=== PATIENT | female | born 1975 | race Caucasian/White ===

== ENCOUNTER → 2020-03-24 | Outpatient (CLI) | payer BC ==
--- NOTE | 2020-03-24 08:54 | XR ---
EXAMINATION TYPE: XR knee complete RT DATE OF EXAM: 03/24/2020 COMPARISON: NONE HISTORY: Pain TECHNIQUE: Three views are submitted. FINDINGS: Mild narrowing of patellofemoral joint and medial compartment knee. There is soft tissue ossification anterior to the tibia. Spur along the upper margin of the patella. No erosive changes. Small amount of fluid in the suprapatellar bursa.. Osseous structures are intact. No acute fracture seen. IMPRESSION: 1. No acute fracture or dislocation. 2. There is arthritic changes compatible with mild osteoarthritis. 3. Small amount of fluid in the suprapatellar bursa can occasionally be associated with internal dera ngement of the knee. Consider MRI as clinically warranted.
== END | disposition home or self-care (01) ==
LOC: RADXRMAIN 07:37
PROVIDERS: ATTEND Family Medicine
DX: M17.11 Unilateral primary osteoarthritis, right knee (principal)

== ENCOUNTER → 2020-04-15 | Outpatient (CLI) | payer BC ==
--- NOTE | 2020-04-17 14:18 | MR ---
EXAMINATION TYPE: MR knee RT wo con DATE OF EXAM: 04/17/2020 COMPARISON: Plain film 03/31/2020 HISTORY: rt knee pain TECHNIQUE: Multiplanar, multisequence imaging of the right knee is performed without IV contrast. FINDINGS: MEDIAL MENISCUS: Anterior and posterior horns are intact without tear. LATERAL MENISCUS: There is some intrasubstance signal at the body, no clear communication with the ar ticular surface CRUCIATE LIGAMENTS: The anterior and posterior cruciate ligaments are intact and unremarkable. COLLATERAL LIGAMENTS: The medial collateral ligament and lateral collateral ligament complex are inta ct and along the medial collateral ligament there is fluid signal present seen on coronal image #23. EXTENSOR MECHANISM: Visualized quadriceps and patellar tendons are intact. EFFUSION: Suprapatellar joint effusion is present. POPLITEAL CYST: Small semimembranosus gastrocnemius cyst is present TRICOMPARTMENT SPACES: Maintained CARTILAGE: There is grade 2 to grade III chondromalacia in the medial compartment and posterior ruff la BONE MARROW SIGNAL: Maintained OTHER: There is subcutaneous edema changes. IMPRESSION: Correlate for medial collateral ligament sprain. Osteoarthritis. Small semimembranosus gastrocnemius cyst. Joint effusion.
== END | disposition home or self-care (01) ==
LOC: RADMRIMAIN 06:27
PROVIDERS: ATTEND Orthopaedic Surgery
DX: M17.11 Unilateral primary osteoarthritis, right knee (principal); M25.811 Other specified joint disorders, right shoulder

== ENCOUNTER → 2020-04-27 | Outpatient (CLI) | payer BC ==
[2020-04-27 12:47] LABS: Basophils # (A) 0.1 k/uL (0-0.2); Basophils % (A) 1 %; Eosinophils # (A) 0.1 k/uL (0-0.7); Eosinophils % (A) 2 %; HCT 40.6 % (34.0-46.0); HGB 13.5 gm/dL (11.4-16.0); Lymphocytes # (A) 1.5 k/uL (1.0-4.8); Lymphocytes % (A) 23 %; MCH 29.7 pg (25.0-35.0); MCHC 33.3 g/dL (31.0-37.0); MCV 89.3 fL (80.0-100.0); Mean Platelet Volume 7.4; Monocytes # (A) 0.4 k/uL (0-1.0); Monocytes % (A) 5 %; Neutrophils # (A) 4.5 k/uL (1.3-7.7); Neutrophils % (A) 67 %; Platelet Count 218 k/uL (150-450); RBC 4.55 m/uL (3.80-5.40); RDW 12.7 % (11.5-15.5); WBC 6.6 k/uL (3.8-10.6)
[2020-04-27 13:11] LABS: Potassium 4.7 mmol/L (3.5-5.1)
== END | disposition home or self-care (01) ==
LOC: LABPAT 11:44
PROVIDERS: ATTEND Orthopaedic Surgery
DX: M23.91 Unspecified internal derangement of right knee (principal)
CPT/HCPCS: 36415; 80051; 85025

== ENCOUNTER 2020-05-13 13:10 | Day surgery (SDC) | payer BC ==
[2020-05-12 09:23] VITALS: BMI 38.7
--- NOTE | 2020-05-12 14:55 | HP ---
HISTORY AND PHYSICAL DATE OF SURGERY: 05/13/2020 Brittany Hutson is a 45-year-old patient seen with progressive right knee pain. We discussed options for treatment. She elected to proceed with arthroscopy. Consent was obtained. PAST MEDICAL HISTORY: Anemia. PAST SURGICAL HISTORY: section, lumbar spine surgery. DAILY MEDICATIONS: Ibuprofen. ALLERGIES: COMPAZINE, LEVAQUIN. SOCIAL HISTORY: She denies tobacco use. PHYSICAL EVALUATION OF THE RIGHT KNEE: Range of motion is -15 to 85. Mild effusion. Tenderness medial joint line. Positive medial Ender's. Ligaments stable. Hip rotation without pain. Distal neurovascular exam intact. Radiographs of the right knee revealed mild osteoarthritic changes. MRI right knee revealed abnormal signal lateral meniscus, grade 2 chondromalacia, joint effusion. IMPRESSION: 1. Internal derangement, right knee with meniscal tear versus osteochondral tear. 2. Hypertension. PLAN: Right knee arthroscopy with partial meniscectomy versus chondroplasty and debridement. MMODL / IJN: [id number] /
[~2020-05-13 13:10] MED LIST: DEXAMETHASONE SOD PHOSPHATE 4 MG/ML 1 ML VIAL IV ONE; LACTATED RINGERS 1,000 ML IV SCH; LIDOCAINE 1% (10MG/ML) FOR IV START INTRADERMA PRN; ONDANSETRON 4 MG/2 ML VIAL IVP ONE; SCOPOLAMINE 1.5MG/72HR PATCH TRANSDERM ONE; ceFAZolin 3 GM in SODIUM CHLORIDE 0.9% 100 ML IVPB PRN
[2020-05-13] MEDS ORDERED: MIDAZOLAM 2 MG/2 ML VIAL IV ONE (14:11)
[2020-05-13] MEDS ORDERED: PROPOFOL 10 MG/ML 20 ML VIAL IV ONE (14:50)
[2020-05-13] MEDS ORDERED: fentaNYL (PF) 50 MCG/ML 2 ML AMP ONE (14:50)
[2020-05-13] MEDS ORDERED: LIDOCAINE 1% INJ 10MG/ML (20 ML MDV) ONE (14:50)
[2020-05-13] MEDS ORDERED: KETAMINE 10 MG/ML 20 ML VIAL ONE (14:50)
[2020-05-13] MEDS ORDERED: BUPIVACAINE (PF) 0.25% 30 ML VIAL INTRAARTIC ONE ×2 (15:17→15:26)
--- NOTE | 2020-05-13 15:45 | P.OP ---
Date of Procedure: 05/13/20 Preoperative Diagnosis: Internal derangement right knee Postoperative Diagnosis: 1. Tear medial meniscus right knee 2. Grade 3 chondromalacia patella right knee 3. Grade 2 chondromalacia medial femoral condyle right knee 4. Reactive synovitis medial, lateral and suprapatellar compartments right knee Procedure(s) Performed: 1. Arthroscopic partial medial meniscectomy right knee 2. Arthroscopic chondroplasty patella right knee 3. Arthroscopic chondroplasty medial femoral condyle right knee 4. Arthroscopic partial synovectomy medial, lateral and suprapatellar compartments right knee Anesthesia: SABRINAA, local Surgeon: Gilberto Stahl Estimated Blood Loss (ml): 7 Pathology: none sent Condition: stable Disposition: PACU Indications for Procedure: 45-year-old patient seen with progressive right knee pain. After treatment options were discussed, she elected to proceed with arthroscopy. Operative Findings: see description of procedure Description of Procedure: Patient was taken to the operative suite. Patient underwent a general anesthetic by the department of anesthesia. Patient was given preoperative antibiotics. The right lower extremity was placed in a well-padded arthroscopic leg rowell. The right leg was prepped and draped in the normal sterile orthopedic fashion. A lateral parapatellar and suprapatellar incision was made. Trochars were inserted. Arthroscopy was initiated. Suprapatellar pouch revealed diffuse thick reactive synovitis. The patellofemoral joint appeared to articulate congruently. There was grade 3 chondral malacia of the patella with some diffuse osteochondral tears present.. The scope was guided into the medial gutter. No loose bodies or plica were identified. The scope was then guided into the medial compartment. A medial parapatellar incision was made. Trocar inserted followed by probe. There was a radial tear posterior horn medial meniscus. There were grade 2 chondromalacia along the medial femoral condyle with some small osteochondral flap tears present. There was thick reactive synovitis anteriorly. I performed a partial medial meniscectomy getting down to stable meniscal tissue. I performed a chondroplasty of the medial femoral condyle getting down to stable osteochondral tissue. I performed a partial synovectomy decompressing the reactive synovitis. The residual meniscus was stable. There was good decompression of the synovitis. Scope and probe were then guided into the intercondylar notch. Cruciates were identified, probed and found to be stable. The scope and probe were then guided into lateral compartment. There was some mild fraying of the midbody lateral meniscus. There was no significant chondromalacia present there was thick reactive synovitis anteriorly. I introduced a motorized shaver and debrided the superfic ial fraying of the meniscus. I performed a partial synovectomy decompressing the reactive synovitis. The shaver was removed. There was good decompression of synovitis. The scope was in guided back into the suprapatellar compartment. I introduced a motorized shaver into the super patellar compartment. I debrided some piecemeal fragments of meniscus I encountered. I performed a chondroplasty of the patella getting down to stable osteochondral tissue. I performed a partial synovectomy decompressing reactive synovitis. Shaver was removed. The residual osteochondral surface of the patella was stable again noted grade 3 chondromalacia there. There was good decompression of synovitis. Instruments were now removed from the joint. The joint was infiltrated with .25% Marcaine. Steri-Strips were applied to the portal sites. Sterile dressings were applied. The patient was placed into a RADHA hose. No tourniquet was utilized. The patient was awakened, transferred to a bed and taken to recovery stable satisfactory condition.
[2020-05-13 15:46] VITALS: TEMP 97.8
[2020-05-13] MEDS: HYDROmorphone 0.5 MG/0.5 ML SYRINGE IVP PRN ×2 (15:47→16:05)
[2020-05-13] MEDS ORDERED: LACTATED RINGERS 1,000 ML IV ONE (16:01)
[2020-05-13 16:32] VITALS: RESP 16
[2020-05-13] MEDS ORDERED: HYDROcodone/APAP 7.5-325MG 1 EACH TAB ONE (16:51)
[2020-05-13] MEDS ORDERED: HYDROcodone/APAP 7.5-325MG 1 EACH TAB PO ONE (16:52)
[2020-05-13 16:56] VITALS: PULSE 70
[2020-05-13 17:35] VITALS: BP 139/89
== END 2020-05-13 17:46 | disposition home or self-care (01) ==
LOC: OR 13:10
PROVIDERS: ATTEND Orthopaedic Surgery
DX: M23.221 Derangement of posterior horn of medial meniscus due to old tear or injury, right knee (principal); M22.41 Chondromalacia patellae, right knee; M65.861 Other synovitis and tenosynovitis, right lower leg; I10 Essential (primary) hypertension; D64.9 Anemia, unspecified; E66.01 Morbid (severe) obesity due to excess calories; G47.33 Obstructive sleep apnea (adult) (pediatric); Z88.1 Allergy status to other antibiotic agents; Z88.8 Allergy status to other drugs, medicaments and biological substances; Z98.891 History of uterine scar from previous surgery; Z98.890 Other specified postprocedural states; Z68.38 Body mass index [BMI] 38.0-38.9, adult
CPT/HCPCS: 29881; 81025; J2250; J1100; J0690; J2405; J2001; J3010; J2704; J1170

== ENCOUNTER → 2020-07-16 | Outpatient (CLI) | payer BC ==
--- NOTE | 2020-07-19 10:19 | MM ---
Reason for exam: screening (asymptomatic). Last mammogram was performed 1 year and 3 months ago. History: Patient history of other cancer and had first child at age 33. Family history of breast cancer in sister at age 44. Took hormonal contraceptives for 15 years beginning at age 16. Physical Findings: A clinical breast exam by your physician is recommended on an annual basis and results should be correlated with mammographic findings. MG 3D Screening Mammo W/Cad Bilateral CC and MLO view(s) were taken. Prior study comparison: April 21, 2019, mammogram. April 17, 2018, mammogram. The breast tissue is heterogeneously dense. This may lower the sensitivity of mammography. Stable benign calcifications. There is no discrete abnormality. No significant changes when compared with prior studies. ASSESSMENT: Benign, BI-RAD 2 RECOMMENDATION: Routine screening mammogram of both breasts in 1 year.
== END | disposition home or self-care (01) ==
LOC: RADMAMWWP 07:03
PROVIDERS: ATTEND Obstetrics & Gynecology
DX: Z12.31 Encounter for screening mammogram for malignant neoplasm of breast (principal); Z80.3 Family history of malignant neoplasm of breast
CPT/HCPCS: 77063; 77067

== ENCOUNTER → 2021-08-18 | Outpatient (CLI) | payer BC ==
--- NOTE | 2021-08-22 08:26 | MM ---
Reason for exam: screening (asymptomatic). Last mammogram was performed 1 year and 1 month ago. History: Patient history of other cancer and had first child at age 33. Family history of breast cancer in sister at age 44. Took hormonal contraceptives for 15 years beginning at age 16. Physical Findings: A clinical breast exam by your physician is recommended on an annual basis and results should be correlated with mammographic findings. MG 3D Screening Mammo W/Cad Bilateral CC and MLO view(s) were taken. Prior study comparison: July 16, 2020, bilateral MG 3d screening mammo w/cad. April 21, 2019, mammogram. There are scattered fibroglandular densities. No significant changes when compared with prior studies. ASSESSMENT: Benign, BI-RAD 2 RECOMMENDATION: Routine screening mammogram of both breasts in 1 year.
== END | disposition home or self-care (01) ==
LOC: RADMAMWWP 10:16
PROVIDERS: ATTEND Obstetrics & Gynecology
DX: Z12.31 Encounter for screening mammogram for malignant neoplasm of breast (principal); Z80.3 Family history of malignant neoplasm of breast
CPT/HCPCS: 77063; 77067

== ENCOUNTER → 2022-08-21 | Outpatient (CLI) | payer BC ==
--- NOTE | 2022-08-22 09:19 | MM ---
Reason for Exam: Screening (asymptomatic). Last mammogram was performed 1 year(s) and 1 month(s) ago. Patient History: Menarche at age 12. First Full-Term at age 33. Late child-bearing (after 30). Other cancer. Hormonal Contraceptives for 15 years from age 16 until age 31. Sister had breast cancer, age 44. Last menstrual period: 06/25/2022 Risk Values: Taisha 5 year model risk: 1.8%. NCI Lifetime model risk: 17.8%. Prior Study Comparison: 04/21/2019 Screening Mammogram, Unknown. 07/16/2020 Bilateral Screening Mammogram, [facility]. 08/18/2021 Bilateral Screening Mammogram, [facility]. Tissue Density: There are scattered fibroglandular densities. Findings: Analyzed By CAD. There is no suspicious group of microcalcifications or new suspicious mass in either breast. Overall Assessment: Negative, BI-RAD 1 Management: Screening Mammogram of both breasts in 1 year. . Patient should continue monthly self-breast exams. A clinical breast exam by your physician is recommended on an annual basis. This exam should not preclude additional follow-up of suspicious palpable abnormalities. Note on Taisha scores and lifetime risk: 1. A Taisha score greater than 3% is considered moderate risk. If this is the case, consider specialist referral to assess eligibility for a risk reducing agent. 2. If overall lifetime risk for the development of breast cancer is 20% or higher, the patient may qualify for future screening with alternating mammogram and breast MRI. Electronically signed and approved by: Tyrese Hooper DO
== END | disposition home or self-care (01) ==
LOC: RADMAMWWP 07:46
PROVIDERS: ATTEND Obstetrics & Gynecology
DX: Z12.31 Encounter for screening mammogram for malignant neoplasm of breast (principal); Z80.3 Family history of malignant neoplasm of breast
CPT/HCPCS: 77063; 77067

== ENCOUNTER → 2023-08-23 | Outpatient (CLI) | payer BC ==
--- NOTE | 2023-08-24 11:11 | MM ---
Reason for Exam: Screening (asymptomatic). Last screening mammogram was performed 12 month(s) ago. Patient History: Menarche at age 12. First Full-Term at age 33. Late child-bearing (after 30). Postmenopausal. Other cancer. Hormonal Contraceptives for 15 years from age 16 until age 31. Sister had breast cancer, age 44. Risk Values: Taisha 5 year model risk: 1.9%. NCI Lifetime model risk: 17.5%. Prior Study Comparison: 04/17/2018 Screening Mammogram, Unknown. 04/21/2019 Screening Mammogram, Unknown. 07/16/2020 Bilateral Screening Mammogram, [facility]. 08/18/2021 Bilateral Screening Mammogram, [facility]. 08/21/2022 Bilateral MG 3D screening mammo w/cad, [facility]. Tissue Density: The breasts are heterogeneously dense, which may obscure small masses. Findings: Analyzed By CAD. There is no suspicious group of microcalcifications or new suspicious mass in either breast. Benign calcifications. Overall Assessment: Benign, BI-RAD 2 Management: Screening Mammogram of both breasts in 1 year. . Patient should continue monthly self-breast exams. A clinical breast exam by your physician is recommended on an annual basis. This exam should not preclude additional follow-up of suspicious palpable abnormalities. Note on Taisha scores and lifetime risk: 1. A Taisha score greater than 3% is considered moderate risk. If this is the case, consider specialist referral to assess eligibility for a risk reducing agent. 2. If overall lifetime risk for the development of breast cancer is 20% or higher, the patient may qualify for future screening with alternating mammogram and breast MRI. Electronically signed and approved by: Leroy Peters M.D. Radiologis
== END | disposition home or self-care (01) ==
LOC: RADMAMWWP 08:01
PROVIDERS: ATTEND Obstetrics & Gynecology
DX: Z12.31 Encounter for screening mammogram for malignant neoplasm of breast (principal); Z78.0 Asymptomatic menopausal state; Z80.3 Family history of malignant neoplasm of breast
CPT/HCPCS: 77063; 77067

== ENCOUNTER → 2024-08-27 | Outpatient (CLI) | payer BC ==
--- NOTE | 2024-08-27 08:20 | MM ---
Reason for Exam: Screening (asymptomatic). Last screening mammogram was performed 12 month(s) ago. Patient History: Menarche at age 12. First Full-Term at age 33. Late child-bearing (after 30). Postmenopausal. Other cancer. Hormonal Contraceptives for 15 years from age 16 until age 31. Sister had breast cancer, age 44. Risk Values: Taisha 5 year model risk: 2.0%. NCI Lifetime model risk: 17.3%. Prior Study Comparison: 08/18/2021 Bilateral Screening Mammogram, [facility]. 08/21/2022 Bilateral MG 3D screening mammo w/cad, [facility]. 08/23/2023 Bilateral MG 3D screening mammo w/cad, [facility]. Tissue Density: There are scattered areas of fibroglandular density. Findings: Analyzed By CAD. Right breast: There is no suspicious group of microcalcifications or new suspicious mass. Left breast: There is no suspicious group of microcalcifications or new suspicious mass. Overall Assessment: Negative, BI-RAD 1 Management: Screening Mammogram of both breasts in [address] [facility] will attempt to contact patient to return for supplemental views and ultrasound if indicated. Patient should continue monthly self-breast exams. A clinical breast exam by your physician is recommended on an annual basis. This exam should not preclude additional follow-up of suspicious palpable abnormalities. Note on Taisha scores and lifetime risk: 1. A Taisha score greater than 3% is considered moderate risk. If this is the case, consider specialist referral to assess eligibility for a risk reducing agent. 2. If overall lifetime risk for the development of breast cancer is 20% or higher, the patient may qualify for future screening with alternating mammogram and breast MRI. [facility], , 08/27/2024 8:16 AM. Electronically signed and approved by: Tyrese Hooper DO
== END | disposition home or self-care (01) ==
LOC: RADMAMWWP 07:48
PROVIDERS: ATTEND Obstetrics & Gynecology
DX: Z12.31 Encounter for screening mammogram for malignant neoplasm of breast (principal); R92.323 Mammographic fibroglandular density, bilateral breasts; Z78.0 Asymptomatic menopausal state; Z80.3 Family history of malignant neoplasm of breast; Z92.0 Personal history of contraception
CPT/HCPCS: 77063; 77067